=== PATIENT | female | born 1995 | race Caucasian/White ===

== ENCOUNTER 2020-03-24 06:00 | Inpatient (IN) | payer BC, OTHER ==
[2020-03-24] MEDS ORDERED: SODIUM CHLORIDE 0.9% 100 ML BAG ONE (11:42)
[2020-03-24] MEDS ORDERED: fentaNYL (PF) 50 MCG/ML 5 ML AMP ONE (11:42)
[2020-03-24] MEDS ORDERED: ROPIVACAINE 5MG/ML 20ML VIAL ONE (11:42)
[2020-03-24] MEDS ORDERED: LIDOCAINE 0.5% (PF) 5 MG/ML (50 ML SDV) SQ PRN (19:18)
[2020-03-24] MEDS ORDERED: CARBOPROST TROMETHAMINE 250 MCG/ML 1 ML AMP IM PRN (19:18)
[2020-03-24] MEDS ORDERED: TERBUTALINE 1 MG/ML VIAL SQ PRN (19:18)
[2020-03-24] MEDS ORDERED: OXYTOCIN 10 UNIT/ML 1 ML VIAL IM PRN (19:18)
[2020-03-24] MEDS ORDERED: METHYLERGONOVINE 0.2 MG/ML 1 ML AMP IM PRN (19:18)
[2020-03-24] MEDS ORDERED: LACTATED RINGERS 1,000 ML IV SCH (19:30)
[2020-03-24] MEDS ORDERED: DINOPROSTONE 10 MG INSERT.ER VAGINAL ONE (19:30)
[2020-03-24 19:49] LABS: Anisocytosis Slight; Basophils % (A) 0 %; Eosinophils # (A) 0.1 k/uL (0-0.7); Eosinophils % (A) 1 %; HCT 39.8 % (34.0-46.0); HGB 12.9 gm/dL (11.4-16.0); Lymphocytes # (A) 1.9 k/uL (1.0-4.8); Lymphocytes % (A) 17 %; MCHC 32.5 g/dL (31.0-37.0); MCV 86.3 fL (80.0-100.0); Mean Platelet Volume 7.4; Monocytes # (A) 0.5 k/uL (0-1.0); Monocytes % (A) 4 %; Neutrophils # (A) 8.7 k/uL (1.3-7.7); Neutrophils % (A) 78 %; Platelet Count 267 k/uL (150-450); RBC 4.61 m/uL (3.80-5.40); RDW 17.1 % (11.5-15.5); WBC 11.2 k/uL (3.8-10.6)
--- NOTE | 2020-03-24 20:14 | P.HPOB ---
History of Present Illness H&P Date: 03/24/20 Chief Complaint: 40-2/7 weeks, unfavorable cervix The patient is a 24-year-old 3 para 0020 admitted at 40-2/7 weeks as established by last menstrual period and confirmed by 12 week ultrasound. She is admitted for Cervidil cervical ripening and Pitocin induction to follow-up if necessary. Her has been entirely uncomplicated and group B strep status is negative. After discussion of continued observation versus induction of labor, the patient requested induction of labor. As her cervix has remained unfavorable, she is admitted for Cervidil cervical ripening as noted above. Ultrasound in the office done yesterday demonstrated an amniotic fluid index of 6.0 cm. testing has been reassuring and she has a category 1 tracing currently. Obstetrical history: 3 para 0020 with one early miscarriage and 1 elective interruption of . Current statistics are listed in history present illness. EDC of 03/22/2020 was established by last menstrual period and confirmed by 12 week ultrasound. Laboratory workup demonstrates a blood type of A+ with a negative antibody screen. Rubella status is immune. Remainder of the laboratory workup was within normal limits. One hour Glucola was normal and group B strep status is negative. Gynecologic history: Unremarkable with no history of any infections to include STDs. Review of Systems Review of systems is confined to history of present illness. Past Medical History Past Medical History: No Reported History History of Any Multi-Drug Resistant Organisms: None Reported Past Surgical History: No Surgical Hx Reported Past Anesthesia/Blood Transfusion Reactions: No Reported Reaction Past Psychological History: No Psychological Hx Reported Smoking Status: Former smoker Past Drug Use History: None Reported - Past Family History Mother Family Medical History: No Reported History Medications and Allergies Home Medications Medication Instructions Recorded Confirmed Type Pnv No.95/Ferrous Fum/Folic AC 1 tab PO ONCE 03/24/20 03/24/20 History [ Multivitamin Tablet] Allergies Allergy/AdvReac Type Severity Reaction Status Date / Time No Known Allergies Allergy Verified 03/24/20 19:21 Exam Vital Signs Temp Pulse Resp BP Pulse Ox 03/24/20 19:22 95.6 F L 121 H 16 133/90 97 Intake and Output 03/24/20 03/24/20 03/24/20 06:59 14:59 22:59 Other: Weight 85.729 kg In general, this is a well-developed, well-nourished white female in no acute distress. Her heart has a regular rhythm and rate without murmur. Her lungs are clear to auscultation bilaterally in all . Her abdomen is gravid, nondistended, has normal active bowel sounds, is soft, nontender, and without any palpable masses aside from the uterine fundus. Her extremities are without any cyanosis, clubbing, or significant edema and are nontender to palpation bilaterally. Digital cervical examination demonstrates her surgery approximately 170 dilated, 50% effaced, with the vertex in presentation at -3 station. Results Result Diagrams: 03/24/20 19:31 Abnormal Lab Results - Last 24 Hours (Table) 03/24/20 Range/Units 19:31 WBC 11.2 H (3.8-10.6) k/uL RDW 17.1 H (11.5-15.5) % Neutrophils # 8.7 H (1.3-7.7) k/uL Assessment and Plan (1) Term Current Visit: Yes Status: Acute Code(s): Z34.90 - ENCNTR FOR SUPRVSN OF NORMAL , UNSP, UNSP TRIMESTER SNOMED Code(s): 33910560 (2) Unfavorable cervix in term Current Visit: Yes Status: Acute Code(s): O34.40 - MATERNAL CARE FOR OTH ABNLT OF CERVIX, UNSP TRIMESTER SNOMED Code(s): 454121891 Plan: The patient has been admitted for Cervidil cervical ripening to be followed by Pitocin induction should it be necessary. Cervidil was placed in the posterior vaginal fornix per protocol. The risks and complications of this procedure as well as induction of labor have been thoroughly discussed and she has understood and agreed to proceed. She is a good candidate for either IV or epidural analgesia, whichever she may choose. She will continue to have close maternal and surveillance and expectant management will be practiced.
[2020-03-25] MEDS: LACTATED RINGERS 1,000 ML IV SCH ×4 (05:52→19:07)
[2020-03-25] MEDS: OXYTOCIN 30 UNITS/500 ML NS 30 UNIT in SALINE 1 500ML.BAG IV SCH ×2 (06:19→23:59)
--- NOTE | 2020-03-25 08:04 | P.PN ---
Subjective Progress Note Date: 03/25/20 The patient reports beginning to become more uncomfortable. Otherwise, no complaints. Objective - Vital Signs Vital signs: Vital Signs Temp 95.6 F L 03/24/20 19:22 Pulse 121 H 03/24/20 19:22 Resp 16 03/24/20 19:22 BP 133/90 03/24/20 19:22 Pulse Ox 97 03/24/20 19:22 Intake & Output 03/24/20 03/25/20 03/25/20 18:59 06:59 18:59 Weight 85.729 kg Other: # Voids 1 - Exam In general, this is a well-developed, well-nourished white female in no acute distress. Her abdomen is gravid, nondistended, soft, nontender, and without any palpable masses aside from uterine fundus. Her extremities without any cyanosis, clubbing, or significant edema and are nontender to palpation bilaterally. Digital cervical examination demonstrates her cervix to be 1-1/2-2 cm dilated, 60% effaced, the vertex in presentation at -2 station. Artificial rupture of membranes is carried out demonstrating clear fluid. - Labs CBC & Chem 7: 03/24/20 19:31 Labs: Abnormal Lab Results - Last 24 Hours (Table) 03/24/20 Range/Units 19:31 WBC 11.2 H (3.8-10.6) k/uL RDW 17.1 H (11.5-15.5) % Neutrophils # 8.7 H (1.3-7.7) k/uL Assessment and Plan (1) Term Current Visit: Yes Status: Acute Code(s): Z34.90 - ENCNTR FOR SUPRVSN OF NORMAL , UNSP, UNSP TRIMESTER SNOMED Code(s): 33365126 (2) Unfavorable cervix in term Current Visit: Yes Status: Acute Code(s): O34.40 - MATERNAL CARE FOR OTH ABNLT OF CERVIX, UNSP TRIMESTER SNOMED Code(s): 526686592 Plan: Continue Pitocin induction. She'll continue to have close maternal and surveillance and expectant management will be practiced. She is again a good candidate for either IV or epidural analgesia at this time.
[2020-03-25] MEDS: BUTORPHANOL 1 MG/ML 1 ML VIAL IV PRN ×2 (08:35→10:12)
--- NOTE | 2020-03-25 22:35 | P.PROBDLV ---
Vaginal Delivery Note - . Vaginal Delivery Note: The patient is a 24-year-old 3 para 0020 admitted initially at 40-2/7 weeks for Cervidil cervical ripening with the intention of Pitocin induction the following morning. Her had been uncomplicated and group B strep status was negative. She had Cervidil placed in standard fashion and then overnight made enough change to allow for artificial rupture of membranes is morning demonstrating clear fluid. Pitocin augmentation has Galen been initiated. She made slow progress through the latent phase of labor and ultimately had an epidural catheter placed approximate 3 cm of dilation. Once she reached approximate 57 m of dilation, she began to dilate more efficiently and progressed reasonably quickly to complete. She then pushed over the course of approximately 45 minutes to a normal spontaneous vaginal delivery of a viable 7 lbs. 6 oz. baby girl with Apgars of 9 at 1 minute and 9 at 5 minutes delivered in the right occiput anterior position. There was a loose nuchal cord 1 which was reduced following delivery of the . There was noted to be fairly moderate meconium-stained fluid following the baby as well as terminal meconium. The placenta was delivered spontaneously, intact, and grossly normal with a grossly normal, centrally inserted three-vessel cord. There were no lacerations of the perineum, vagina, or cervix. Estimated blood loss for the case was approximately 150 mL. There were no complications. All sponge, instrument, and needle counts were correct. Both mother and infant are resting comfortably in recovery.
[2020-03-25] MEDS ORDERED: BENZOCAINE/MENTHOL SPRAY 1 GM/SPRAY AEROSOL TOPICAL PRN (23:37)
[2020-03-25] MEDS ORDERED: ACETAMINOPHEN TAB 325 MG TAB PO PRN (23:37)
[2020-03-25] MEDS ORDERED: ZOLPIDEM 5 MG TAB PO PRN (23:37)
[2020-03-25] MEDS ORDERED: LANOLIN CREAM 5 GM TUBE TOPICAL PRN (23:37)
[2020-03-25] MEDS ORDERED: IBUPROFEN 600 MG TAB PO PRN (23:37)
[2020-03-25] MEDS ORDERED: diphenhydrAMINE 25 MG CAP PO PRN (23:37)
[2020-03-25] MEDS ORDERED: diphenhydrAMINE 50 MG CAP PO PRN (23:37)
[2020-03-25] MEDS ORDERED: SIMETHICONE 80 MG CHEWABLE PO PRN (23:37)
[2020-03-25] MEDS ORDERED: OXYTOCIN 20 UNITS/1000 ML NS 1,000 ML IV SCH (23:45)
[2020-03-26 05:56] LABS: Anisocytosis Slight; Basophils % (A) 0 %; Eosinophils % (A) 0 %; HCT 38.8 % (34.0-46.0); HGB 12.5 gm/dL (11.4-16.0); Lymphocytes # (A) 1.9 k/uL (1.0-4.8); Lymphocytes % (A) 10 %; MCHC 32.4 g/dL (31.0-37.0); MCV 86.6 fL (80.0-100.0); Mean Platelet Volume 7.3; Monocytes % (A) 5 %; Neutrophils # (A) 15.9 k/uL (1.3-7.7); Neutrophils % (A) 84 %; Platelet Count 254 k/uL (150-450); RBC 4.48 m/uL (3.80-5.40); RDW 17.2 % (11.5-15.5); WBC 19.1 k/uL (3.8-10.6)
--- NOTE | 2020-03-26 08:47 | P.DS ---
Providers Date of admission: 03/24/20 19:06 Expected date of discharge: 03/26/20 Attending physician: Td Bray Primary care physician: Td Bray - Discharge Diagnosis(es) (1) Term Current Visit: Yes Status: Acute (2) Unfavorable cervix in term Current Visit: Yes Status: Acute (3) Normal spontaneous vaginal delivery Current Visit: Yes Status: Acute Hospital Course: The patient is a 24-year-old 3 para 0020 admitted at 40-2/7 weeks for Cervidil cervical ripening to be followed by Pitocin induction. Her was otherwise uncomplicated and group B strep status was negative. On labor and delivery, all signs are reassuring with a category 1 heart rate tracing. She did have borderline oligohydramnios. She had Cervidil placed and made adequate progress overnight to allow for artificial rupture of membranes in the morning after Pitocin augmentation of been started. She had an epidural catheter placed slightly before the onset of the active phase of labor and then ultimately did progress to complete and pushed to a normal spontaneous vaginal delivery of a viable 7 lbs. 6 oz. baby girl with Apgars of 9 at 1 minute and 9 at 5 minutes. Her course was unremarkable vital signs remained stable and her temperature was afebrile throughout. She was deemed stable for discharge on day #1 was discharged home to follow-up in the office in 6 weeks routinely. Discharge instructions included calling for any significantly increased bleeding or foul-smelling lochia, significantly increased fever abdominal pain, perineal complaints, breast complaints, or any also concerned her. She was additionally instructed to have nothing in the vagina for at least 6 weeks time to include intercourse. She understood her instructions and agrees follow up as noted above. Discharge medications included continued vitamins as she has opted to breast-feed. She was otherwise to use [id number] analgesic pain medications as needed. Materna l blood type is A+ and rubella status is immune. Procedures: #1. Cervidil cervical ripening #2. Pitocin augmentation #3. Artificial rupture of membranes #4. Epidural analgesia #5. Normal spontaneous vaginal delivery Patient Condition at Discharge: Stable Plan - Discharge Summary New Discharge Prescriptions: No Action Pnv No.95/Ferrous Fum/Folic AC [ Multivitamin Tablet] 1 tab PO ONCE Discharge Medication List Pnv No.95/Ferrous Fum/Folic AC [ Multivitamin Tablet] 1 tab PO ONCE 03/24/20 [History] Follow up Appointment(s)/Referral(s): Td Bray MD [Primary Care Provider] - 6 Weeks
[2020-03-26] MEDS: SENNOSIDES-DOCUSATE SODIUM 1 EACH TAB PO SCH ×2 (09:25→19:52)
[2020-03-26 16:20] VITALS: BP 132/73; PULSE 72; RESP 18; TEMP 98.2
== END 2020-03-26 22:45 | disposition home or self-care (01) | DRG 806 ==
LOC: 4FBP 19:06
PROVIDERS: ADMIT Obstetrics & Gynecology; ATTEND Obstetrics & Gynecology
PROC: 10E0XZZ Delivery of Products of Conception, External Approach (ICD-10-PCS; principal; 2020-03-25)
PROC: 3E0P7VZ Introduction of Hormone into Female Reproductive, Via Natural or Artificial Opening (ICD-10-PCS; 2020-03-25)
PROC: 10907ZC Drainage of Amniotic Fluid, Therapeutic from Products of Conception, Via Natural or Artificial Opening (ICD-10-PCS; 2020-03-25)
PROC: 3E0R3BZ Introduction of Anesthetic Agent into Spinal Canal, Percutaneous Approach (ICD-10-PCS; 2020-03-25)
DX: O34.43 Maternal care for other abnormalities of cervix, third trimester (principal); O41.03X0 Oligohydramnios, third trimester, not applicable or unspecified; Z37.0 Single live birth; O69.81X0 Labor and delivery complicated by cord around neck, without compression, not applicable or unspecified; O77.0 Labor and delivery complicated by meconium in amniotic fluid; Z3A.40 40 weeks gestation of pregnancy; Z79.899 Other long term (current) drug therapy; Z87.59 Personal history of other complications of pregnancy, childbirth and the puerperium; Z87.891 Personal history of nicotine dependence
CPT/HCPCS: 85025; 86850; 86900; 86901

== ENCOUNTER 2020-03-31 15:20 | Emergency (ER) | payer BC, OTHER ==
[2020-03-31 16:18] VITALS: RESP 18
[2020-03-31] MEDS ORDERED: SODIUM CHLORIDE 0.9% 1,000 ML IV ONE (16:20)
[2020-03-31] MEDS ORDERED: SODIUM CHLORIDE 0.9% 1,000 ML IV SCH (16:30)
[2020-03-31] MEDS ORDERED: CAFFEINE-SODIUM BENZOATE 500 MG in SODIUM CHLORIDE 0.9% 1,000 ML IVPB ONE (16:30)
[2020-03-31] MEDS ORDERED: KETOROLAC 15 MG/ML 1 ML VIAL IVP STA (17:56)
--- NOTE | 2020-03-31 18:45 | ED ---
Headache HPI - General Chief Complaint: Headache Stated Complaint: Spinal leak Time Seen by Provider: 03/31/20 16:19 Mode of arrival: ambulatory Limitations: no limitations - History of Present Illness Initial Comments: 24-year-old female who is 4 days presenting today for chief complaint of post-epidural headache. Patient states that she had 3 attempts at epidural b efore it was successful. She states she had a headache following it, patient was told to drink caffeine, lie flat, and increase fluids. Patient states she's been trying to abide by these instructions however the headache persists. Patient states she has not taken any medications or caffeine today and admits to not being able to lie flat. Patient denies any fevers she states the pain is achy in the head in the back of the neck. She denies any vomiting visual changes she denies a right upper quadrant tenderness lower extremity edema chest pain shortness of breath or dyspnea on exertion. Patient denies confusion. Upon arrival she appears well nontoxic. BP WNL, no signs of distress. - Related Data Home Medications Medication Instructions Recorded Confirmed Pnv No.95/Ferrous Fum/Folic AC 1 tab PO ONCE 03/24/20 03/24/20 [ Multivitamin Tablet] Allergies Allergy/AdvReac Type Severity Reaction Status Date / Time No Known Allergies Allergy Verified 03/31/20 16:18 Review of Systems ROS Statement: Those systems with pertinent positive or pertinent negative responses have been documented in the HPI. ROS Other: All systems not noted in ROS Statement are negative. Past Medical History Past Medical History: No Reported History History of Any Multi-Drug Resistant Organisms: None Reported Past Surgical History: No Surgical Hx Reported Past Anesthesia/Blood Transfusion Reactions: No Reported Reaction Past Psychological History: No Psychological Hx Reported Smoking Status: Former smoker Past Alcohol Use History: None Reported Past Drug Use History: None Reported - Past Family History Mother Family Medical History: No Reported History General Exam - General Exam Comments Initial Comments: General: The patient is awake and alert, in no distress. Eye: +3 mm pupils are equal, round and reactive to light, extra-ocular movements are intact. No nystagmus. There is normal conjunctiva bilaterally. No signs of icterus. Ears, nose, mouth and throat: There are moist mucous membranes and no oral lesions. Neck: The neck is supple, there is no tenderness or JVD. Cardiovascular: There is a regular rate and rhythm. No murmur, rub or gallop is appreciated. Respiratory: Lungs are clear to auscultation, respirations are non-labored, breath sounds are equal. No wheezes, stridor, rales, or rhonchi. Gastrointestinal: Soft, non-distended, non-tender abdomen without masses or organomegaly noted. There is no rebound or guarding present. Musculoskeletal: Normal ROM, no tenderness. Strength 5/5. Sensation intact. Raidal pulses equal bilaterally 2+. Neurological: A&O x 3. CN II-XII intact, There are no obvious motor or sensory deficits. Coordination appears grossly intact. Speech is normal. Skin: Skin is warm and dry and no rashes or lesions are noted. No extremity edema. Psychiatric: Cooperative, appropriate mood & affect, normal judgment. Limitations: no limitations Course Vital Signs 03/31/20 03/31/20 16:16 19:00 Temperature 98.9 F 98.1 F Pulse Rate 78 53 L Respiratory 18 18 Rate Blood Pressure 127/86 143/73 O2 Sat by Pulse 100 96 Oximetry Medical Decision Making - Medical Decision Making ANTUNEZ improved wiht position, fluids, caffeine. Discussed case post status and symptoms/PE with attending Dr Bonilla who is agreeable to care plan/work up and discharge. Disposition Clinical Impression: Headache Disposition: HOME SELF-CARE Condition: Good Instructions (If sedation given, give patient instructions): Epidural Blood Patch (DC), Lumbar Puncture (ED) Additional Instructions: Please use medication as discussed. Please follow-up with family doctor in the next 2 days, if headache persists tomorrow, develop swelling, shortness of breath, fever or right sided abdominal pain, return immediately to the ER. Please return to emergency room if the symptoms increase or worsen or for any other concerns. Is patient prescribed a controlled substance at d/c from ED?: No Referrals: None,Stated [Primary Care Provider] - 1-2 days Time of Disposition: 18:45
[2020-03-31 19:03] VITALS: BP 143/73; PULSE 53; TEMP 98.1
== END 2020-03-31 19:03 | disposition home or self-care (01) ==
LOC: EC 15:20
DX: R51.9 Headache, unspecified (principal); Z87.891 Personal history of nicotine dependence
CPT/HCPCS: 99284; 96365; 96366; 96375; J1885